=== PATIENT | male | born 1985 | race Caucasian/White ===

== ENCOUNTER 2018-11-19 16:22 | Emergency (ER) ==
[2018-11-19 17:12] LABS: URINE SOURCE CLEAN CATCH
[2018-11-19 17:17] LABS: BILIRUBIN URINE NEGATIVE (NEGATIVE); BLOOD URINE NEGATIVE (NEGATIVE); COLOR YELLOW; GLUCOSE URINE NEGATIVE (NEGATIVE); KETONE URINE NEGATIVE (NEGATIVE); LEUKOCYTES URINE NEGATIVE (NEGATIVE); NITRITE URINE NEGATIVE (NEGATIVE); PH URINE 5.5; PROTEIN URINE 100 mg/dL (NEGATIVE); SP GRAVITY URINE 1.029; TURBIDITY URINE CLEAR (CLEAR); UR EPITHELIAL CELLS <10 /HPF (<10); URINE BACTERIA NEGATIVE /HPF; URINE RBC <10 /HPF (<10); URINE WBC <10 /HPF (<10); UROBILINOGEN URINE NORMAL (NORMAL)
[2018-11-19] MEDS ORDERED: NS 1,000 ML IV ONE (18:12)
[2018-11-19] MEDS ORDERED: MORPHINE IV ONE (18:12)
--- NOTE | 2018-11-19 18:14 | Diag Imaging Result Doc PS360 ---
EXAM: KUB ABDOMEN HISTORY: EPIGASTRIC PAIN TECHNIQUE: Abdomen two views COMPARISON: None. FINDINGS: Air distended small bowel loop in the mid left abdomen. There is air and stool present within the colon. No organomegaly. No foreign body. No abnormal calcifications. IMPRESSION: Ileus versus early obstruction. Electronically signed by Chivo Kenney 11/19/2018 6:12 PM
[2018-11-19 18:51] LABS: BASO# 0.03 X1000 (0.0-0.2); BASO% 0.3 % (0.0-0.8); EOS% 1.1 % (0.0-10.0); HEMATOCRIT 47.9 % (42.0-52.0); HEMOGLOBIN 16.2 g/dL (14.0-18.0); IMM GRAN# 0.02 X1000 (0.0-0.04); IMM GRAN% 0.2 % (0.0-0.5); LYMPH# 1.45 X1000 (1.2-3.4); LYMPH% 15.2 % (20.5-51.1); MCH 29.3 PG (27-31); MCHC 33.8 g/dL (33-37); MCV 86.8 FL (81-99); MONO# 0.52 X1000 (0.11-0.59); MONO% 5.5 % (1.7-9.3); MPV 9.2 FL (7.4-10.4); NEUT# 7.39 X1000 (1.4-6.5); NEUT% 77.7 % (42.2-75.2); PLT 248 X1000 (130-400); RBC 5.52 XMIL (4.7-6.1); RDW 13.3 % (11.5-14.5); WBC 9.51 X1000 (4.8-10.8)
[2018-11-19] MEDS ORDERED: ZOFRAN ONE (18:57)
[2018-11-19] MEDS ORDERED: ZOFRAN IV ONE (19:08)
[2018-11-19 19:22] LABS: AGAP 19; ALB/GLOB RATIO 1.5; ALBUMIN 4.8 g/dL (3.5-5.0); ALKALINE PHOSPHATASE 88 U/L (32-122); AMYLASE 36 U/L (20-200); BUN 14 mg/dL (8-22); CALCIUM 9.8 mg/dL (8.8-10.2); CHLORIDE 104 mmol/L (98-107); COSMO 283; CREATININE 0.7 mg/dL (0.7-1.2); ESTIMATED GFR > 60; GLUCOSE 92 mg/dL (70-104); GOT 29 U/L (10-34); GPT 20 U/L (10-44); LIPASE 42 U/L (13-60); MAGNESIUM 1.8 mg/dL (1.5-2.7); POTASSIUM 3.8 mmol/L (3.5-5.1); SODIUM 142 mmol/L (136-145); TCO2 19 mmol/L (25-35); TOTAL BILIRUBIN 0.33 mg/dL (0.20-1.00); TOTAL PROTEIN 8.1 g/dL (6.3-8.3)
--- NOTE | 2018-11-19 19:43 | PROVIDER DOCUMENTATION ---
This chart was entered by Debby Sandhu Scribe, acting as scribe for Justus Paulino MD. HPI-Abdominal Pain/GI Problem - General Chief Complaint: Epigastric Pain Stated Complaint: L SIDE PAIN Time Seen by Provider: 11/19/18 18:02 Source: patient Allergies/Adverse Reactions: Patient Allergies Allergy/AdvReac Type Severity Reaction Status Date / Time No Known Allergies Allergy Verified 11/19/18 18:22 Home Medications: Home Medication List Medication Instructions Recorded Confirmed Last Taken Type Baclofen [Lioresal] 10 mg PO BID #30 tab 06/27/18 Unknown Rx Chlordiazepoxide [Librium] 10 mg PO TID #30 capsule 06/27/18 Unknown Rx Lactobacillus Rhamnosus GG 1 ea PO DAILY #30 cap 06/27/18 Unknown Rx [Culturelle] Omeprazole [Prilosec] 20 mg PO DAILY@0700 #30 cap 06/27/18 Unknown Rx Hydrocodone/Acetaminophen [[place] 1 ea PO Q4-6H PRN PRN #12 tab 08/31/18 Unknown Rx 5-325 Tablet] Ibuprofen [Motrin] 800 mg PO TID PRN #30 tab 08/31/18 Unknown Rx - History of Present Illness-ABD Nature of Presenting Problems: 33 yom present to er w/co around 1200 pm, sharp central abd pain that radiates to back, pt states they are vomiting and have nausea but no blood. pt states pain 10/10 and having fever and chills. pt denies cp, sob, and trouble urinating. Abdominal Pain Onset Location: reports: epigastric Pain Radiation: reports: back Quality of Pain: reports: sharp Severity in ED: reports: mild Onset/Duration: reports: 4-6 hours ago Timing: reports: still present Review of Systems - Adult - REVIEW OF SYSTEMS - ADULT Constitutional: reports: see HPI, chills, fever. denies: fatique, night sweats Eyes: reports: no symptoms reported Ears, Nose, Mouth & Throat: reports: no symptoms reported Cardiovascular: reports: no symptoms reported. denies: chest pain Respiratory: reports: no symptoms reported. denies: shortness of breath Gastrointestinal: reports: see HPI, abdominal pain (epigastric), vomiting. denies: constipation, difficulty swallowing, frequent heartburn Genitourinary: reports: no symptoms reported. denies: frequent UTI's Musculoskeletal: reports: no symptoms reported, back pain (epigastric pain radiating to back) Integumentary: reports: no symptoms reported Neurological: reports: no symptoms reported Psychiatric: reports: no symptoms reported Endocrine: reports: no symptoms reported Hematologic/Lymphatic: reports: no symptoms reported Allergic/Immunologic: reports: no symptoms reported All Other Systems: Reviewed and Negative Past History - Adult - PAST MEDICAL HISTORY-ADULT Review of Records: reports: Old Records Reviewed, Nursing Assessment Review, Medications Reviewed, Social history reviewed & non-contributory. Major Childhood Illnesses: reports: denies history Cardiovascular: reports: denies history Respiratory: reports: denies history Gastrointestinal: reports: denies history Obstetrical/Gynecological: reports: denies history Genitourinary: reports: denies history Musculoskeletal: reports: denies history Neurological: reports: denies history Psychiatric: reports: depression Endocrine/Immune: reports: denies history Other Conditions: reports: denies history - PRIOR SURGERIES/PROCEDURES Surgical/Procedure History: reports: tonsillectomy - IMMUNIZATION STATUS Childhood Immunizations: See Nurse Assessment Flu Vaccine: See Nurse Assessment - FAMILY HISTORY Family History: reviewed, not pertinent - SOCIAL HISTORY Smoking: other (former) Substance Use: none/never Physical Exam-General - PHYSICAL EXAM-ADULT Initial Vital Signs Reviewed: Yes - CONSTITUTIONAL General Appearance: alert, mild distress. negative: slow to respond, obtunded, combative - EYES Eyes: PERRL/EOMI - HEAD, EARS, NOSE, MOUTH & THROAT HENMT: normocephalic/atraumatic, moist mucous membranes, normal ENT inspection - NECK Neck: non-tender, full range of motion, supple, normal inspection - RESPIRATORY Respiratory: chest non-tender, lungs clear, normal breath sounds - CARDIOVASCULAR Cardiovascular: normal peripheral pulses, regular rate, rhythm - GASTROINTESTINAL (ABDOMEN) Abdominal Exam: normal bowel sounds, non tender, soft, tenderness (epigastric tenderness). 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, grossly normal, no motor/sensory deficits - PSYCHIATRIC Psych/Mental Status: normal mood/affect, normal thought content, normal thought process, oriented x 3 Progress - PLAN OF CARE/RESULTS Progress/Plan/Lab Results: Vital Signs - 8 hr 11/19/18 16:43 11/19/18 18:22 Temperature 98.8 F 100.5 F H Pulse Rate 92 H Respiratory Rate 18 Blood Pressure 152/100 O2 Sat by Pulse Oximetry 98 Laboratory Results - last 24 hr 11/19/18 17:03 Urine Source CLEAN CATCH Urine Color YELLOW Urine Turbidity CLEAR Urine pH 5.5 Ur Specific [place] 1.029 Urine Protein 100 A Ur Glucose (Stick) NEGATIVE Ur Ketones (Stick) NEGATIVE Urine Blood NEGATIVE Urine Nitrite NEGATIVE Urine Bilirubin NEGATIVE Urobilinogen Dipstick NORMAL Urine Leukocytes NEGATIVE Urine WBC (Auto) <10 Urine RBC (Auto) <10 U Epithel Cells (Auto) <10 Urine Bacteria (Auto) NEGATIVE Orders Category Date Time Status NPO Diet 11/19/18 16:48 Active KUB ABDOMEN [RAD] Stat Exams 11/19/18 17:42 Completed AMYLASE [CHEM] Stat Lab 11/19/18 18:39 Received CBC WITH ELECTRONIC DIFF [HEME] Stat Lab 11/19/18 18:39 Results COMPREHENSIVE METABOLIC PANEL [CHEM] Stat Lab 11/19/18 18:39 Received LIPASE [CHEM] Stat Lab 11/19/18 18:39 Received MAGNESIUM [CHEM] Stat Lab 11/19/18 18:39 Received URINALYSIS W/POSS RFLX CULT [URINALYSIS] Stat Lab 11/19/18 17:03 Completed 0.9% Sodium Chloride Inj [Ns] 1,000 ml Med 11/19/18 18:12 Active IV 999 mls/hr Morphine Med 11/19/18 18:12 Discontinued 4 mg IV NOW ONE Result Diagrams: 11/19/18 18:39 11/19/18 18:39 - REASSESSMENT Reassessment #1 Time Reassessed: 19:35 Status: other (SPOKE TO HOSPITALIST; APPRECIATE THEIR ASSISTANCE.) - XRAY 1 XRAY Study: Abdomen ([facility] [address], [address], [place] [address] Department of Imaging Patient: PELON COFFEY JRADM Date: 11/19/18MR#: [id number] : 1985ADM Status: PRE ERAcct#: [id number] Age/Sex: 33/MRoom/Bed: Loc: ED Ordering Physician: Justus Paulino MD Family Physician: None,PCP Reason for Procedure: EPIGASTRIC PAIN Signed EXAM: KUB ABDOMEN HISTORY: EPIGASTRIC PAIN TECHNIQUE: Abdomen two views COMPARISON: None. FINDINGS: Air distended small bowel loop in the mid left abdomen. There is air and stool present within the colon. No organomegaly. No foreign body. No abnormal calcifications. IMPRESSION: Ileus versus early obstruction. Electronically signed by Chivo Kenney 11/19/2018 6:12 PM 11/19/181811 Interpreting Physician: Chivo Kenney MD Dictated Date/Time: 11/19/181811 cc: Justus Paulino MD; None,PCP) Departure - Departure Date of Disposition Decision: 11/19/18 Time of Disposition Decision: 19:43 DIAGNOSIS: Ileus, Small bowel obstruction Disposition: ADMITTED INPATIENT 09 Certified Medical Emergency: Emergent Condition: Fair Referrals and Follow-Ups: None,PCP [Primary Care Provider] - - Critical Care Note This patient required my direct & personal management of CC.: No Attestation - Physician/ KELIN Attestation Patient care was provided by Advanced Practice Provider:: No The physician spent face to face time with patient:: Yes Advanced Practice Provider documentation review:: Supervising physician onsite and consulted in the evaluation and care of this patient. The physician did have a face to face encounter with the patient. This chart was documented by the indicated scribe, (Debby Sandhu Scribe) and accurately reflects the services I performed and decisions made by me, Justus Paulino MD, as attested by the provider's signature.
[2018-11-19] MEDS ORDERED: ZOFRAN IV PRN (19:56)
[2018-11-19] MEDS ORDERED: SODIUM CHLORIDE 0.9% INJ SCH (20:00)
[2018-11-19] MEDS: PROTONIX IV SCH (20:19)
[2018-11-19] MEDS: LOVENOX SUBQ SCH (20:22)
--- NOTE | 2018-11-19 22:10 | HISTORY AND PHYSICAL ---
PRIMARY CARE DOCTOR: Dr. Krishnan. PRESENTING COMPLAINT: Abdominal pain. HISTORY OF PRESENTING COMPLAINT: Mr. Peguero is a 33-year-old, male, who was discharged from this hospital in June 2018, mainly because of alcohol abuse symptoms. Also steatohepatitis, mild pancreatitis. He refers to have been doing pretty well. He does not drink alcohol anymore. He went to see his primary care doctor early this morning. He seems to have been in a regular state of health until late this afternoon. He started having excruciating left upper quadrant abdominal pain, associated with multiple episodes of vomiting. Mr. Peguero refers that initially the pain was about 6/10, but then it went up to about almost 9 to 10/10 at its peak. It radiated to the back and it also made the entire left side of the abdomen very uncomfortable. The patient denied any diarrhea. He presented to the emergency department where he was evaluated. Initial KUB suggested ileus versus early obstruction. We have been consulted for admission. PAST MEDICAL HISTORY: 1. Steatohepatitis. 2. Alcohol-related disease. PAST SURGICAL HISTORY: None. CURRENT MEDICATIONS: Omeprazole 20 mg b.i.d. The patient was also started on gabapentin today by his primary care doctor. SOCIAL HISTORY: The patient denies any tobacco use. He said he only uses the vapor. Denies alcohol use since his last discharge. His last admission from the hospital and no illicit drug use. FAMILY HISTORY: Is unremarkable. REVIEW OF SYSTEMS: Fourteen point review of systems conducted with Mr. Peguero unremarkable, except what we gave the HPI. Specifically, he denies any chest pain. He denies shortness of breath. No urinary symptoms. No headaches. PHYSICAL EXAMINATION: VITAL SIGNS: The patient's blood pressure 152/100, pulse of 92, respirations 18, temperature 98.8. The patient was saturating 98% on room air. GENERAL: Mr. Peguero is a 33-year-old, obese, gentleman. He was in bed. No distress. HEENT: Mucosa is pink and moist. Anicteric. Acyanotic. Head is normocephalic and atraumatic. NECK: Supple. There was no JVD. No carotid bruit. RESPIRATORY SYSTEM: There is good air entry bilaterally. No crepitations. No rhonchi. No accessory muscle use. CARDIOVASCULAR: Regular rate and rhythm. No murmurs, no rubs. ASSESSMENT AND PLAN: 1. Acute onset of right upper quadrant and epigastric pain. Etiology is unclear. KUB shows early ileus versus early obstruction. We are going to do a CT scan of the abdomen with p.o. contrast to rule out an obstruction and also rule out any inflammatory process that could be ongoing. 2. Obesity with BMI of 36.5. 3. History of hepatic steatosis, noted. So, in general, I think Mr. Peguero is feeling a little better. He had this left upper quadrant epigastric pain of unclear etiology. We are going to do a CT scan with oral contrast to rule out any obstruction versus any other possible intraabdominal pathology. We will keep him n.p.o. overnight, adequate hydration and follow up with a CT report. cc: Tavon Rodriguez MD
--- NOTE | 2018-11-19 22:42 | Diag Imaging Result Doc PS360 ---
EXAM: CT ABD/PELVIS W/PO AND IV CON HISTORY: severe abdomen pain TECHNIQUE: CT abdomen and pelvis with intravenous contrast COMPARISON: 06/26/2018 FINDINGS: There continues to be fatty infiltration of the liver. No calcified gallstones or adjacent inflammation. Normal spleen, pancreas, and adrenal glands. Normal enhancement of the kidneys. No hydronephrosis. Normal aorta. No inflammation about the cecum. No abscess. No bowel obstruction. Oral contrast has passed through the small bowel and entered the colon. There is stool throughout the colon. A small amount of free fluid is found in the pelvis. Prostate is normal. The urinary bladder is moderately distended and is normal. IMPRESSION: 1.Fatty infiltration of the liver 2.Mild constipation with several scattered diverticula 3.Unexplained small amount of free fluid in the pelvis This exam was performed using automated exposure control, adjustment of mA or kV according to patient size, and/or use of iterative reconstruction technique. Electronically signed by Chivo Kenney 11/19/2018 10:40 PM
[2018-11-19] MEDS: NS 1,000 ML IV SCH (23:33)
[2018-11-20] MEDS: MORPHINE IV PRN ×8 (00:19→23:48)
[2018-11-20 06:22] LABS: HEMATOCRIT 39.6 % (42.0-52.0); MCH 29.3 PG (27-31); MCHC 32.8 g/dL (33-37); MCV 89.2 FL (81-99); PLT 193 X1000 (130-400); RBC 4.44 XMIL (4.7-6.1); RDW 13.3 % (11.5-14.5)
[2018-11-20 06:23] LABS: BASO# 0.01 X1000 (0.0-0.2); BASO% 0.2 % (0.0-0.8); EOS% 1.6 % (0.0-10.0); IMM GRAN# 0.02 X1000 (0.0-0.04); IMM GRAN% 0.3 % (0.0-0.5); LYMPH# 1.88 X1000 (1.2-3.4); LYMPH% 30.8 % (20.5-51.1); MONO# 0.47 X1000 (0.11-0.59); MONO% 7.7 % (1.7-9.3); MPV 9.3 FL (7.4-10.4); NEUT# 3.62 X1000 (1.4-6.5); NEUT% 59.4 % (42.2-75.2)
[2018-11-20 06:46] LABS: AGAP 11; ALB/GLOB RATIO 1.7; ALBUMIN 3.7 g/dL (3.5-5.0); ALKALINE PHOSPHATASE 69 U/L (32-122); BUN 9 mg/dL (8-22); CALCIUM 7.9 mg/dL (8.8-10.2); CHLORIDE 108 mmol/L (98-107); COSMO 282; CREATININE 0.6 mg/dL (0.7-1.2); ESTIMATED GFR > 60; GLUCOSE 98 mg/dL (70-104); GOT 19 U/L (10-34); GPT 14 U/L (10-44); POTASSIUM 3.7 mmol/L (3.5-5.1); SODIUM 142 mmol/L (136-145); TCO2 23 mmol/L (25-35); TOTAL BILIRUBIN 0.38 mg/dL (0.20-1.00); TOTAL PROTEIN 5.9 g/dL (6.3-8.3)
--- NOTE | 2018-11-20 06:58 | EKG Report ---
Test Performed on : 11/19/2018 6:30:08 PM Test Reason : ED. NO EKG ORDER FOR MUSE Blood Pressure : / mmHG Vent. Rate : 080 BPM Atrial Rate : 080 BPM P-R Int : 150 ms QRS Dur : 072 ms QT Int : 374 ms P-R-T Axes : 009 038 026 degrees QTc Int : 431 ms Normal sinus rhythm. Normal ECG No previous ECGs available Unconfirmed Result
[2018-11-20] MEDS: NS 1,000 ML IV SCH ×2 (09:29→16:27)
--- NOTE | 2018-11-20 13:40 | PROGRESS NOTE ---
DATE: 11/20/2018 SUBJECTIVE: Followed by Dr. Gao, I think is said. Recently got insurance. This is a 33-year- old male discharged from this hospital June 2018 mainly because of alcohol abuse, also steatohepatitis and pancreatitis. He was doing pretty well, did not drink anymore by his report. Went to a primary care doctor early in the morning on 11/19/2018, seemed to have regular state of health. He told me today he had hunger to go to [employer], went to [employer] and after he ate and came home, he had right upper quadrant pains and episodes of vomiting. He states that he has had these kind of discomforts in the past, so he was admitted with acute onset of right upper quadrant epigastric pain. KUB showed ileus versus early obstruction. CT of the abdomen with p.o. contrast was ordered and was done yesterday. Fatty infiltration of the liver, mild constipation with several scattered diverticula, unexplained small amount of fluid in the pelvis and then obesity, BMI of 36, history of hepatic steatitis. PHYSICAL EXAMINATION: Vital signs: Today, temperature 97.8 degrees, pulse 70, respirations 20, blood pressure 111/52. HEENT: Pupils are equal and round. Lungs: Clear in all lung alexander. Cardiovascular: Regular rhythm and rate without murmur or S3. Abdomen: He has some tenderness in the epigastric and right upper quadrant. I think he probably ought to get an ultrasound of his abdomen. ASSESSMENT AND PLAN: 1. Epigastric pain, right upper quadrant pain. We will get an ultrasound of his stomach. 2. History of drinking. He has steatohepatitis, which I think his liver enzymes have improved. In fact, his transaminases are normal. His bilirubin was 0.38. 3. Morbid obesity. BMI of 36. We will check an ultrasound. CURRENT ORDERS: He is on Protonix, a PPI, 40 mg IV q.12. Getting normal saline at 100 mL an hour. Review of his home medications, he was on Prilosec 20 mg b.i.d. and Zantac 1 twice a day. cc: Jarocho Odom MD
--- NOTE | 2018-11-20 14:37 | Diag Imaging Result Doc PS360 ---
EXAM: US ABDOMEN-COMPLETE 11/20/2018 HISTORY: RUQ and epigastric pain TECHNIQUE: Abdominal ultrasound COMMENT: The study is somewhat suboptimal due to the patient's body habitus. The pancreas is not well seen. There is very poor detail in the liver. There is antegrade flow in the portal vein. The gallbladder is clear and nontender. The common bile duct measures 4 mm. The kidneys are without evidence of hydronephrosis or mass. The spleen is slightly enlarged measuring over 13 cm in longest dimension. There are no abnormal fluid collections. The visualized portions of the aorta and inferior vena cava are within normal limits. IMPRESSION: No evidence of acute disease. Electronically signed by Sherwin Rogers 11/20/2018 2:35 PM
[2018-11-20] MEDS ORDERED: TORADOL IV ONE (21:33)
[2018-11-20] MEDS: PROTONIX IV SCH (21:48)
[2018-11-20] MEDS: LOVENOX SUBQ SCH (21:48)
[2018-11-21] MEDS: MORPHINE IV PRN ×3 (02:45→08:47)
[2018-11-21] MEDS ORDERED: NS 1,000 ML ONE (05:53)
[2018-11-21 08:17] VITALS: BP 137/77
--- NOTE | 2018-11-21 10:35 | PROGRESS NOTE ---
DATE: 11/21/2018 SUBJECTIVE: He says he feels good. No further pain. He is hungry so, in fact I may advance him to a regular diet and, if he does okay, we can let him go home. We did an ultrasound of his abdomen. No evidence of acute disease. The pancreas was not well seen. Very poor detail of the liver. Antegrade flow from the portal vein. Gallbladder is clear, nontender, and of course his abdominal CT showed fatty infiltration of the liver. He had some scattered diverticulum. OBJECTIVE: Vital Signs: On exam today, temperature 98.2 degrees, pulse 76, respirations 18, blood pressure 137/77. Eyes: Pupils are equal and round. Lungs: Clear in all lung alexander. Cardiovascular exam: Regular rhythm and rate without murmur or S3. : Urine output was 800 mL. ASSESSMENT AND PLAN: Epigastric pain, fairly acute. No further pain. I do not see any evidence of gallbladder dysfunction or disease at this point, or any problem with his pancreas. We will try him on a regular diet. I do see evidence of steatohepatitis, although I think he just basically has liver infiltration. His liver enzymes are not elevated. cc: Jarocho Odom MD
--- NOTE | 2018-11-21 10:43 | DISCHARGE SUMMARY ---
ADMISSION DATE: 11/19/2018 DISCHARGE DATE: 11/21/2018 HOSPITAL COURSE: He reports that his primary care doctor is Dr. Krishnan. He came in with this acute onset of abdominal pain. He is a 33-year-old male discharged from this hospital in 2018, mainly from alcohol abuse, also steatohepatitis and pancreatitis. He has been doing pretty well. Does not drink any alcohol anymore. Went to see his primary care physician, Dr. Gao. He had excruciating left upper quadrant abdominal pain associated with multiple episodes of vomiting and presented to the emergency room. The pain resolved and his liver functions, including lipase and amylase and transaminases, were all normal. Creatinine was 0.6. [place] much better. We did do an ultrasound of his abdomen and did not see any acute biliary disease. We did an abdominal pelvic CT which showed fatty infiltration of the liver, mild constipation, several scattered diverticula, unexplained small amount of free air in the pelvis, but was nontender. His bowels are moving. Advanced him to a regular diet,which he tolerated, and he wanted to go home. So, we will let him go home. His medicines at home: Prilosec 20 mg b.i.d. and Zantac 1 tablet b.i.d. We will continue those. Encourage him to stay off of alcohol. Follow up with Dr. Gao. cc: Jarocho Odom MD
== END 2018-11-21 11:25 | disposition admitted as inpatient to this hospital (09) ==
LOC: ED 16:22 → 4N 16:22 → SUATTDRO 16:23
PROVIDERS: ATTEND Internal Medicine
CPT/HCPCS: 74000; 74018; 74177; 76700; 80053; 81001; 82150; 83605; 83690; 83735; 85025; 93005; 96361; 96372; 96374; 96375; 99285; C9113; J1650; J1885; J2270; J2405; J7030; Q9967; S0164